=== PATIENT | male | born 1940 | race Caucasian/White ===

== ENCOUNTER 2021-12-31 09:48 | Emergency (ER) | payer MEDICARE, SELFPAY ==
--- NOTE | ~2021-12-31 | XR_ITS ---
XR knee LT 2V 12/31/2021 10:17 Indication: Twisting injury with lateral left knee pain Procedure: 2 views left knee Comparison: No prior studies for comparison. Findings: There is a linear ossific density lateral to the lateral femoral condyle, suspicious for av ulsion fracture. No significant soft tissue abnormality. No significant joint effusion. There are mil d degenerative changes of the knee. There are vascular calcifications. Impression: 1: Possible minimally displaced avulsion fracture lateral margin of the distal femur. Correlate for p oint tenderness. Reviewed, dictated and finalized at location A. Impression: 1: Possible minimally displaced avulsion fracture lateral margin of the distal femur. Correlate for point tenderness.
[2021-12-31 09:52] VITALS: BP 151/61; PULSE 88; RESP 18; TEMP 36.4; O2SAT 95
--- NOTE | 2021-12-31 10:13 | ED.FALL ---
HPI - Fall General Chief Complaint: Fall Stated Complaint: fall Time Seen by Provider: 12/31/21 10:09 History of Present Illness HPI Narrative: 81-year-old male presents to the emergency room for evaluation of left knee pain. Patient states that he abruptly stood up from a sitting position, and lost his footing causing him to twist his knee. Patient denies any other injuries. Patient states he has a sharp stabbing pain on the left side of his knee when he attempts to ambulate. Related Data Home Medications Medication Instructions Recorded Confirmed carbamazepine mg PO 07/07/19 cetirizine mg 07/07/19 hydroxyurea 07/07/19 lisinopril 07/07/19 montelukast mg 07/07/19 simvastatin mg 07/07/19 trazodone 07/07/19 Allergies Allergy/AdvReac Type Severity Reaction Status Date / Time No Known Allergies Allergy Verified 12/31/21 10:09 Review of Systems Review of Systems: CONSTITUTIONAL: Denies fever, chills, or sweats. SKIN: Denies rash or itching. MUSCULOSKELETAL: Reports left knee NEUROLOGIC: Denies headache, numbness, dizziness, or weakness. PSYCHIATRIC: Denies anxiety or depression. [facility] Past Medical History Medical History Hypercholesterolemia Hypertension Seizures Thrombocytopenia Takes chemo pill for Surgical History Surgical History H/O Spinal surgery Disc fused and neck Exam Narrative: GENERAL: Well-appearing, well-nourished, and in no acute distress. HEAD: Normocephalic, atraumatic. EYES: PERRLA and EOMI. CHEST: Clear to auscultation. No respiratory distress. No wheezes rales or rhonchi HEART: Regular rate and rhythm. No murmur heard. Normal peripheral pulses. ABDOMEN: Soft, nontender, nondistended, normal active bowel sounds. EXTREMITIES: Left knee: infra lateral patellar tenderness is present, no ecchymosis, no soft tissue swelling, no joint laxity, no obvious bony abnormality, negative Aracelis's test, neurovascular is intact distally SKIN: Warm, dry, no rash. NEURO: No focal deficits. Alert and oriented x3. PSYCH: Normal mood and affect. Course Vital Signs Vital signs: Vital Signs Temperature 36.4 C L 12/31/21 09:52 Pulse Rate 88 12/31/21 09:52 Respiratory Rate 18 12/31/21 09:52 Blood Pressure 151/61 H 12/31/21 09:52 Pulse Oximetry 95 12/31/21 09:52 Temperature 36.4 C L 12/31/21 09:52 Pulse Rate 88 12/31/21 09:52 Respiratory Rate 18 12/31/21 09:52 Blood Pressure 151/61 H 12/31/21 09:52 Pulse Oximetry 95 12/31/21 09:52 Discharge Plan Discharge Clinical Impression: Fracture of left knee region Patient Disposition: Home, Self-Care Condition: Stable Instructions: Antibiotic Form, Leg Fracture (ED) Prescriptions: No Action hydroxyurea 500 mg capsule RF: 0 trazodone 50 mg tablet RF: 0 cetirizine 10 mg tablet RF: 0 lisinopril 20 mg tablet RF: 0 simvastatin 80 mg tablet RF: 0 montelukast 10 mg tablet RF: 0 carbamazepine 200 mg capsule, ER multiphase 12 hr PO RF: 0 fluticasone propionate [Flonase Allergy Relief] 50 mcg/actuation spray,suspension 1 spray NASAL DAILY Qty: 15.8 RF: 0 cetirizine [Zyrtec] 10 mg tablet 10 mg PO DAILY Qty: 30 RF: 0 Follow-up/Referrals: Adan Thomas MD [Physician] - [facility],MD Melanie [Primary Care Provider] - Time of Disposition: 11:32
[2021-12-31 11:44] VITALS: BP 148/72; PULSE 78; RESP 18; O2SAT 99
== END 2021-12-31 11:46 | disposition home or self-care (01) ==
PROVIDERS: Emergency Provider Nurse Practitioner Family; PCP Internal Medicine Geriatric Medicine
DX: S72.402A Unspecified fracture of lower end of left femur, initial encounter for closed fracture (principal); E78.00 Pure hypercholesterolemia, unspecified; I10 Essential (primary) hypertension; D69.6 Thrombocytopenia, unspecified; S72.492A Other fracture of lower end of left femur, initial encounter for closed fracture; X50.9XXA Other and unspecified overexertion or strenuous movements or postures, initial encounter
CPT/HCPCS: 73560; 99284